=== PATIENT | female | born 1970 | race Caucasian/White ===

== ENCOUNTER 2018-02-06 16:52 | Emergency (ER) | payer MEDICARE, OTHER ==
[2018-02-06] MEDS: TRIMETHOPRIM/SULFAMETHOX (DS) TAB PO (18:52)
[2018-02-06] MEDS: CEPHALEXIN 500 MG CAP PO (18:52)
[2018-02-06] MEDS: HYDROCODONE/APAP (10/325) TAB PO (18:54)
[2018-02-06] MEDS: LIDOCAINE 1% (MDV) 10 ML INJ INFIL (19:17)
== END 2018-02-06 19:38 | disposition home or self-care (01) ==
LOC: FTE 16:52
DX: L02.414 Cutaneous abscess of left upper limb (principal); F17.210 Nicotine dependence, cigarettes, uncomplicated
CPT/HCPCS: 10061; 99284-25

== ENCOUNTER 2018-06-04 07:42 | Emergency (ER) | payer MEDICARE, OTHER ==
[2018-06-04 08:18] LABS: URINE PH (Dip) POC 5.5 (5.0-8.5)
[2018-06-04 08:18] LABS: URINE BLOOD (Dip) POC Trace-lysed (NEGATIVE); URINE GLUCOSE (Dip) POC Negative (NEGATIVE); URINE KETONES (Dip) POC Negative (NEGATIVE); URINE LEUKOCYTE EST (Dip) POC 1+ (NEGATIVE); URINE NITRITE (Dip) POC Positive (NEGATIVE); URINE TOTAL PROTEIN POC 1+ (NEGATIVE)
[2018-06-04] MEDS: HYDROCODONE/APAP (5/325) TAB PO (08:23)
[2018-06-04] MEDS ORDERED: LIDOCAINE 1% (MDV) 20 ML INJ SC (08:30)
[2018-06-04] MEDS: LIDOCAINE 1% (MPF) 30 ML INJ SC (08:35)
== END 2018-06-04 09:16 | disposition home or self-care (01) ==
LOC: FTE 07:42
DX: L02.31 Cutaneous abscess of buttock (principal); N39.0 Urinary tract infection, site not specified; L02.416 Cutaneous abscess of left lower limb; L02.415 Cutaneous abscess of right lower limb; L02.414 Cutaneous abscess of left upper limb; L02.413 Cutaneous abscess of right upper limb; F11.90 Opioid use, unspecified, uncomplicated; F17.210 Nicotine dependence, cigarettes, uncomplicated
CPT/HCPCS: 10060; 81003; 81025; 87086; 99283-25